=== PATIENT | male | born 1985 | race Caucasian/White ===

== ENCOUNTER 2017-11-12 19:11 | Emergency (ER) | END 2017-11-13 03:46 | disposition left against medical advice (07) ==

== ENCOUNTER 2018-05-10 21:23 | Inpatient (IN) | END 2018-05-22 17:40 | disposition home or self-care (01) | DRG 477 ==

== ENCOUNTER 2019-04-28 16:03 | Emergency (ER) | payer MEDICAID, OTHER ==
[~2019-04-28] VITALS: Ht 180.3 cm; Wt 204.8 kg
[~2019-04-28 16:03] MED LIST: ATOR40TA68 PO; LISI-313 PO; PRED50TA PO
[2019-04-28 16:06] VITALS: Ht 180.3 cm; Wt 204.8 kg
--- NOTE | 2019-04-28 16:42 | ERD ---
ER Documentation Chief Complaint Chief Complaint pt has bilateral LE swelling, pt has SOB HPI This is a 34-year-old gentleman with fairly recent history of TTP approximately 1 year ago. The patient presents to the emergency room because of bilateral lower extremity swelling. He describes waxing and waning symptoms over the last several months. Patient initially noted shortness of breath in triage but denies any shortness of breath to me. He denies any chest pain, no exertional symptoms. He denies pleuritic pain. No fevers chills or cough. 2 months ago he did report a possible episode of hematemesis. He had mild abdominal cramping at that time but since then no further episodes. He does follow with Dr. Monk, hematology oncology and platelets have been appropriate recently. ROS All systems reviewed and are negative except as per history of present illness. 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)) Hx Psychiatric Problems: No Hx Miscellaneous Medical Probl: No (MORBID OBESITY.) Hx Alcohol Use: Yes ("1-2 bottles of IPAs per week") Hx Substance Use: No Hx Tobacco Use: Yes ("I quit cigarette smoking 2 years ago (2016);" I do vaping 1-2x/wk) Smoking Status: Current some day smoker FmHx Family History: No diabetes Physical Exam Vitals Vital Signs Date Temp Pulse Resp B/P (MAP) Pulse Ox O2 O2 Flow FiO2 Time Delivery Rate 04/28/19 98.7 98 40 188/93 100 16:06 (124) 04/28/19 86 18 118/53 100 Room Air 16:05 (74) Physical Exam General: Well developed, well nourished, no acute distress, morbidly obese Head: Normocephalic, atraumatic. Eyes: Pupils equally reactive, EOM intact ENT: Moist mucous membranes Neck: Supple, no lymphadenopathy Respiratory: Lungs clear bilaterally, no distress Cardiovascular: RRR, no murmurs, rubs, or gallops Abdominal: Soft, non-tender, non-distended, no peritoneal signs : Deferred MSK: Scant bilateral lower extremity pitting edema, no unilateral swelling, 5/5 strength Neurologic: Alert and oriented, moving all extremities, normal speech, no focal weakness, no cerebellar signs Skin: No rash no petechia or purpura Psych: Normal mood Result Diagram: 04/28/19 1644 04/28/19 1644 Results 24 hrs Laboratory Tests Test 04/28/19 16:44 White Blood Count 9.0 10^3/ul Red Blood Count 4.86 10^6/ul Hemoglobin 12.9 g/dl Hematocrit 40.9 % Mean Corpuscular Volume 84.2 fl Mean Corpuscular Hemoglobin 26.5 pg Mean Corpuscular Hemoglobin Concent 31.5 g/dl Red Cell Distribution Width 14.2 % Platelet Count 210 10^3/UL Mean Platelet Volume 10.8 fl Immature Granulocytes % 0.800 % Neutrophils % 76.0 % Lymphocytes % 14.1 % Monocytes % 5.0 % Eosinophils % 3.8 % Basophils % 0.3 % Nucleated Red Blood Cells % 0.0 /100WBC Immature Granulocytes # 0.070 10^3/ul Neutrophils # 6.8 10^3/ul Lymphocytes # 1.3 10^3/ul Monocytes # 0.5 10^3/ul Eosinophils # 0.3 10^3/ul Basophils # 0.0 10^3/ul Nucleated Red Blood Cells # 0.0 10^3/ul Sodium Level 137 mmol/L Potassium Level 4.0 mmol/L Chloride Level 99 mmol/L Carbon Dioxide Level 31 mmol/L Anion Gap 7 Blood Urea Nitrogen 16 mg/dl Creatinine 0.81 mg/dl Est Glomerular Filtrat Rate mL/min > 60 mL/min Glucose Level 323 mg/dl Calcium Level 8.9 mg/dl Total Bilirubin 0.3 mg/dl Direct Bilirubin 0.00 mg/dl Indirect Bilirubin 0.3 mg/dl Aspartate Amino Transf (AST/SGOT) 53 IU/L Alanine Aminotransferase (ALT/SGPT) 91 IU/L Alkaline Phosphatase 106 IU/L Troponin I < 0.012 ng/ml B-Type Natriuretic Peptide 134 PG/ML Total Protein 7.4 g/dl Albumin 3.7 g/dl Globulin 3.70 g/dl Albumin/Globulin Ratio 1.00 Lipase 36 U/L Procedures/MDM EKG, MONITORS, & DIAGNOSTIC IMAGING: EKG: I reviewed and interpreted a 12-lead EKG. Rhythm: Normal sinus rhythm ST Changes: No contiguous ST segment elevations T waves: No contiguous T wave inversions Impression: No evidence of acute cardiac ischemia Chest x-ray: I reviewed and interpreted a 1 view of the chest Mediastinum: No enlargement Cardiac silhouette: No cardiomegaly Airspace: Clear lung ruelas bilaterally without evidence of pneumothorax Bones: No evidence of fracture LAB INTERPRETATION: I reviewed the laboratory testing and it shows no acute process MEDICAL DECISION MAKING: The patient is a complicated 34-year-old including morbid obesity and fairly recent TTP diagnosis. Presents with lower extremity swelling that seems to be consistent with peripheral vascular disease likely venous insufficiency versus diet and body habitus. Low clinical concern for DVT given bilateral nature. The patient does not exhibit any overt signs or symptoms concerning for renal failure hepatic failure or cardiac failure however given his complex medical history do believe laboratory testing and diagnostic imaging would be appropriate. I will relay this information with his managing hematology oncologist. Patient does not appear to have signs and symptoms consistent with TTP. He is otherwise well-appearing in the emergency room setting. ER COURSE: * The patient continues to be well-appearing in the emergency room setting. He has no evidence of CHF, hepatic failure renal failure. Platelets are normal. * Dr. Monk notified and ok with DC * Patient can be safely discharged with close primary care follow-up and evaluation and treatment of nonspecific peripheral edema. CONSULTATION: Hematology oncology: Dr. Monk DISPOSITION PLAN: The patient does not have an identifiable emergent medical condition that warrants inpatient hospitalization at this time. The patient is deemed safe for discharge with outpatient follow-up. We discussed follow up with the patient's primary care doctor within 24 to 48 hours as needed. We also discussed return to the emergency room for worsening symptoms or worsening condition. Outpatient referral: None required Discharge Medications: None required Departure Diagnosis: Primary Impression: Peripheral edema Additional Impression: Morbid obesity Condition: Stable TIM OROZCO, MD Apr 28, 2019 16:42
[2019-04-28 18:04] VITALS: BP 142/92; PULSE 78; RESP 18
== END 2019-04-28 18:15 | disposition home or self-care (01) ==
LOC: E/R 16:03
DX: R60.0 Localized edema (principal); E66.01 Morbid (severe) obesity due to excess calories; F17.210 Nicotine dependence, cigarettes, uncomplicated
CPT/HCPCS: 36415; 71045; 80053; 83690; 83880; 84484; 85025; 93005

== ENCOUNTER 2019-07-20 20:07 | Emergency (ER) | payer OTHER ==
[~2019-07-20] VITALS: Ht 180.3 cm; Wt 202.5 kg
[~2019-07-20 20:07] MED LIST changes: -ATOR40TA68 PO; +IBUP800T48 PO; -LISI-313 PO; -PRED50TA PO
[2019-07-20 20:13] VITALS: BP 183/91; PULSE 85; RESP 24; Ht 180.3 cm; Wt 202.5 kg
== END 2019-07-20 21:53 | disposition home or self-care (01) ==
LOC: FTE 20:07
DX: H92.02 Otalgia, left ear (principal); Z87.891 Personal history of nicotine dependence
CPT/HCPCS: 99282